=== PATIENT | male | born 1955 | race Caucasian/White ===

== ENCOUNTER 2020-08-09 09:50 | Day surgery (SDC) | payer BC ==
[~2020-08-09] VITALS: Ht 188 cm; Wt 109.1 kg
[2020-08-09] MEDS ORDERED: LORA-59 PO (10:23)
[2020-08-09] MEDS ORDERED: ISOS10TA2 PO (10:23)
[2020-08-09] MEDS ORDERED: OMEP20TA62 PO (10:23)
[2020-08-09] MEDS ORDERED: DOXA4TAB2 PO (10:34)
[2020-08-09] MEDS ORDERED: DICL75TA3 PO (10:34)
[2020-08-09] MEDS ORDERED: ACET650S21 PO (10:34)
[2020-08-09] MEDS ORDERED: ONDA4TAB13 SL (10:34)
[2020-08-09] MEDS ORDERED: METH2.5T PO (10:34)
[2020-08-09] MEDS ORDERED: ROSU10TA2 PO (10:34)
[2020-08-09] MEDS ORDERED: FLUT1DIS IH (10:34)
[2020-08-09] MEDS ORDERED: DICL100G25 TP (10:34)
[2020-08-09] MEDS ORDERED: ALBU8.5H8 INH (10:34)
[2020-08-09] MEDS ORDERED: FOLI1TAB32 PO (10:34)
[2020-08-09 11:10] VITALS: BP 132/61
[2020-08-09 11:23] LABS: BASOPHILS % (AUTO) 1 % (0-1); EOSINOPHILS % (AUTO) 3 % (1-7); LYMPHOCYTES % (AUTO) 18 % (22-44); MEAN CORPUSCULAR HEMOGLOBIN 31.5 pg (27.5-34.5); MEAN CORPUSCULAR HGB CONC 34.4 g/dL (33.2-36.2); MEAN PLATELET VOLUME 7.4 fL (7.4-10.4); MONOCYTES % (AUTO) 7 % (2-9); NEUTROPHILS % (AUTO) 72 % (42-75); PLATELET COUNT 213 x10^3/uL (130-400); RED BLOOD COUNT 4.69 x10^6/uL (4.38-5.82); RED CELL DISTRIBUTION WIDTH 13.3 % (9.4-14.8)
[2020-08-09 11:26] LABS: ANION GAP 7 mmol/L (5-15); CALCIUM 8.5 mg/dL (8.5-10.1); CHLORIDE 109 mmol/L (98-107); CREATININE 1.07 mg/dL (0.7-1.3); MD NO
[2020-08-09] MEDS ORDERED: FENTANYL PF 100 MCG/2ML ONE (12:07)
[2020-08-09] MEDS ORDERED: MIDAZOLAM 1 MG/ML, 5ML ONE (12:07)
[2020-08-09] MEDS ORDERED: VERAPAMIL 2.5 MG/ML, 2ML ONE (12:07)
[2020-08-09] MEDS ORDERED: LIDOCAINE-MPF 1%, 5ML ONE (12:08)
[2020-08-09] MEDS ORDERED: SODIUM CHLORIDE 0.9% 1,000 ML IV SCH (13:00)
== END 2020-08-09 14:28 | disposition home or self-care (01) ==
LOC: CACL 09:50
PROVIDERS: ATTEND Internal Medicine Cardiovascular Disease
DX: I20.0 Unstable angina (principal); I10 Essential (primary) hypertension; J45.20 Mild intermittent asthma, uncomplicated; E78.5 Hyperlipidemia, unspecified; N40.1 Benign prostatic hyperplasia with lower urinary tract symptoms; R39.11 Hesitancy of micturition; Z79.899 Other long term (current) drug therapy; Z82.49 Family history of ischemic heart disease and other diseases of the circulatory system
CPT/HCPCS: 36415; 80048; 85025; 93458; 99156; C1769; C1894; J2250; J3010; Q9967